=== PATIENT | male | born 1965 | race Two or more races ===

== ENCOUNTER 2020-04-06 06:27 | Inpatient (IN) | payer OTHER ==
[~2020-04-06] VITALS: Ht 175.3 cm; Wt 79.1 kg
[2020-04-06 06:35] VITALS: Ht 175.3 cm; Wt 79.1 kg
--- NOTE | 2020-04-06 06:48 | NUR ---
PT PRESENTED TO ED FOR C/O OF LEFT SIDED ABDOMINAL PAIN THAT RADIATES TO LEFT FLANK WITH ONE EPISODE OF NAUSEA/VOMITING THIS AM. PT REPORTS PAIN X 4 DAYS AGO BUT STATES PAIN WORSENED THIS AM. PT REPORTS LBM X 2 DAYS AGO. PT DENIES FEVER. PT A&0X4, SPEAKING FULL CLEAR SENTENCES. PT BREATHING EVEN AND UNLABORED. ATTEMPTED TO OBTAIN URINE SAMPLE FROM PT AT THIS TIME PT STATES UNABLE TO PROVIDE ONE. PT VERBALIZED UNDERSTANDING THAT SAMPLE IS NEEDED AND STATES HE WILL ATTEMPT ONE SOON. AWAITING MSE. WILL CONTINUE TO MONITOR.
--- NOTE | 2020-04-06 07:17 | NUR ---
REPORT GIVEN TO KULDEEP DINH. KULDEEP DINH TO ASSUME CARE OF PT AT THIS TIME.
--- NOTE | 2020-04-06 07:18 | NUR ---
PT TO CT VIA W/C
[2020-04-06 07:42] LABS: BASOPHIL % 0.4 % (0-2); PLATELET COUNT 296 x10^3mcL (130-400); RED CELL DISTRIBUTION WIDTH 12.8 % (11.5-14.5)
[2020-04-06 07:55] LABS: CALCIUM 8.9 mg/dL (8.5-10.1); CHLORIDE SERUM 104 mmol/L (98-107); CREATININE SERUM 1.2 mg/dL (0.7-1.3); GFR1 > 60 mL/min; GLUCOSE SERUM 106 mg/dL (74-106); POTASSIUM SERUM 3.3 mmol/L (3.5-5.1); SODIUM SERUM 143 mmol/L (136-145)
[2020-04-06 08:05] LABS: ALBUMIN 3.7 g/dL (3.4-5.0); ALKALINE PHOSPHATASE 103 U/L (46-116); ALT/SGPT 57 U/L (16-63); AST/SGOT 29 U/L (15-37); BILIRUBIN TOTAL 0.6 mg/dL (0.20-1.00); TOTAL PROTEIN, SERUM 7.3 g/dL (6.4-8.2)
[2020-04-06 08:29] LABS: UA SPECIFIC GRAVITY 1.015 (1.005-1.035); microscopic required? YES; urine erythrocyte 2+ (NEGATIVE)
--- NOTE | 2020-04-06 08:42 | NUR ---
POC DISCUSSED WITH PT BY ER MD. PT MEDICATED WITH MORPHINE 2MG IVP PER MD ORDERS FOR PAIN, PT LYING IN BED COMFORTABLY IN NO DISTRESS ON FULL CM SINUS ASHER VSS WILL CONTINUE TO MONITOR
[2020-04-06] MEDS ORDERED: AMLODIPINE BESYL5 M2 PO (08:43)
[2020-04-06] MEDS ORDERED: LIPI20 PO (08:44)
--- NOTE | 2020-04-06 09:59 | NUR ---
REPORT GIVEN TO JULIO CÉSAR DINH RESUMING CARE OF PT IN MED SURG FLOOR
--- NOTE | 2020-04-06 10:11 | NUR ---
RECIEVED PATIENT FROM ER. PATIENT ACCOMPANIED TO THE LOBBY VIA WHEELCHAIR BY CORPORATE SECURITY OFFICER. PATIENT PRESENTED TO THE EMERGENCY ROOM AT AROUND 0630 REPORTING LEFT LLQ ABD PAIN. PATIENT DIAGNOSED WITH LEFT URETERAL STOPNE. PATINT IS FRISIAN SPEAKING. NO REPORT OF PAIN AT THIS TIME. IV TO THE LEFT WRIST 20 GUAGE CURRENTLY SALINE LOCKED. UA SENT. WILL CONTINUE TO PROVIDE CARE FOR THIS PATIENT.
[2020-04-06 10:15] LABS: CHOLESTEROL/HDL RATIO 3.5; MAGNESIUM 1.8 mg/dL (1.8-2.4); PHOSPHOROUS 3.3 mg/dL (2.5-4.9)
[2020-04-06 10:17] VITALS: BP 135/87
[2020-04-06 10:47] LABS: AMPHETAMINE QUAL UR NONE DETECTED (See below)
--- NOTE | 2020-04-06 11:10 | NUR ---
PATIENT REPORTS PAIN WHEN AMBULATING. TORADOL GIVEN PER EMAR.
[2020-04-06 11:51] VITALS: BP 138/89
--- NOTE | 2020-04-06 18:20 | NUR ---
PATIENT CURRENTLY AWAKE ALERT AND ORIENTED. PATIENT IS RECIEVING NS AT 100CC/HOUR TO THE LEFT WRIST. PATIENT TO HAVE POSSIBLE CYTOSCOPY, SHOCKWAVE ON 04-08-20 TO TREAT STONE IN URETER. PATIENT INSTRUCTED TO OBSERVE FOR STONE IN CASE IT IS PASSED WITH REGULAR VOIDING. PATIENT DOES REPORT LEFT LOWER QUADRANT PAIN AND RECIEVED TORADOL AND NORCO FOR PAIN PER EMAR. WILL ENDORSE ALL FURTHER CARE TO THE NOC NURSE.
--- NOTE | 2020-04-06 19:54 | NUR ---
PT. AWAKE, ALERT, SITTING UP IN BED. ORIENTED X4. DENIES HEADACHE OR DIZZINESS. BREATH SOUNDS CLEAR THROUGHOUT LUNG SALEEM, RESP. EVEN, UNLABORED. NO SOB NOTED. PT. ON RA. ABD. SOFT AND ROUND, BOWEL SOUNDS ACTIVE. C/O LLQ ABD. PAIN. NO EDEMA TO BLE. PEDAL PULSES STRONG KYLE. IV SITE INTACT. CALL LIGHT WITHIN REACH. PT. STATED THAT HIS PAIN MEDICATION ONLY WORKED FOR A WHILE. RECEIVED PRN TORADOL AND PRN NORCO EARLIER. PT. DUE FOR PRN NORCO AT 2029. WILL MONITOR.
[2020-04-06 20:30] VITALS: BP 134/83
--- NOTE | 2020-04-06 20:44 | NUR ---
PRN NORCO GIVEN FOR C/O PAIN, 06/03. WILL MONITOR
--- NOTE | 2020-04-07 00:33 | NUR ---
PT. WITH EYES CLSOED, APPEARS TO BE SLEEPING. NO FURTHER C/O ABD. SINCE PRN NORCO. CALL LIGHT REMAINS WITHIN REACH.
[2020-04-07 05:10] VITALS: BP 109/71
--- NOTE | 2020-04-07 06:24 | NUR ---
NO COMPLAINTS THIS AM. PT. STATED THAT HE DID HAVE A LITTLE PAIN EARLIER IN THE NIGHT BUT HAS SINCE GONE AWAY. DENIES NEED FOR PAIN MEDICATION. IVF INFUSING WELL, SITE INTACT. NO BLOOD NOTED IN URINE, NO STONES NOTED FROM FILTER. CALL LIGHT WITHIN REACH. WILL ENDORSE PT CARE TO INCOMING NURSE.
[2020-04-07 07:27] LABS: CALCIUM 8.6 mg/dL (8.5-10.1); CARBON DIOXIDE 24.7 mmol/L (21-32); CHLORIDE SERUM 107 mmol/L (98-107); CREATININE SERUM 1.3 mg/dL (0.7-1.3); GFR1 > 60 mL/min; GLUCOSE SERUM 88 mg/dL (74-106); POTASSIUM SERUM 3.4 mmol/L (3.5-5.1); SODIUM SERUM 141 mmol/L (136-145)
[2020-04-07 07:29] LABS: BASOPHIL % 0.6 % (0-2); PLATELET COUNT 260 x10^3mcL (130-400); RED CELL DISTRIBUTION WIDTH 13.3 % (11.5-14.5)
--- NOTE | 2020-04-07 07:30 | NUR ---
PATIENT IS A&OX4, FOLLOWS COMMANDS AND COOPERATES WELL. MEDSURG PATIENT, DENIES CHEST PAIN AT THIS TIME. PERIPHERAL PULSES PALPABLE W/ NO SIGNS OF EDEMA. LUNG SOUNDS CTA BILATERALLY, ON RA, O2 SAT 98%, DENIES SOB. NORMOACTIVE BSX4, ABD SOFT AND FLAT. NO STONES HAVE PASSED WHEN VOIDING. DENIES ANY PAIN AT THIS TIME. AMBULATORY WITH FULL ROM. SKIN IS INTACT. DENIES ANY DISCOMFORT AT THIS TIME WELL. IV SITE REMAINS CDI. WILL CONTINUE TO MONITOR.
[2020-04-07 08:05] VITALS: BP 119/78
--- NOTE | 2020-04-07 11:12 | NUR ---
FAMILY DROPPED OFF PATIENT BELONGINGS WITH RAZOR. NOTIFIED CHARGE NURSE AND WAS TOLD TO NOTIFY PATIENT THAT RAZORS ARE NOT ALLOWED AT THE HOSPITAL. ALL QUESTIONS AND CONCERNS HAVE BEEN ADDRESSED FOR THE PATIENT. PATIENT UNDERSTANDS. WILL CONTINUE TO MONITOR.
[2020-04-07 12:22] VITALS: BP 125/86
[2020-04-07 16:35] VITALS: BP 124/83
--- NOTE | 2020-04-07 16:55 | NUR ---
PATIENT SIGNED INFORMED CONSENT FOR PROCEDURE THAT WILL TAKE PLACE TOMORROW AT 1300. UROLOGY MD SPOKE TO PATIENT THROUGH THE PHONE. ALL QUESTIONS AND CONCERNS WERE ADDRESSED BY YAMINI PLASCENCIA. NO QUESTIONS WERE ASKED UPNO SIGNING INFORMED CONSENT. WILL CONTINUE TO MONITOR.
--- NOTE | 2020-04-07 18:29 | NUR ---
PATIENT DENIES ANY PAIN OR DISCOMFORT AT THIS TIME. ALL QUESTIONS AND CONCERNS WERE ADDRESSED PERTAINING TO NPO, AND SURGERY TOMORROW. PATIENT IS CURRENTLY RESTING IN BED AT THIS TIME. WILL CONTINUE TO MONITOR.
--- NOTE | 2020-04-07 19:30 | NUR ---
REC'D PT FROM DAY NURSE. PT RESTING IN BED. AAOX4, SPEECH CLEAR, FOLLOWS COMMANDS. MED SURG. NO TELE. DENIES CP, DIZZINESS, OR PALPITATIONS. DENIES RESP DISTRESS OR SOB. BREATHING EVEN/UNLABORED ON RA. NO EDEMA NOTED. ABD SOFT/ROUND. C/O LLQ TENDERNESS AND PAIN, STABBING, RADIATING TO TESTICLES. WILL GIVE TORADOL PER ORDER. VOIDING FREELY. PT EDUCATED REGARDING URINATING IN URINAL TO STRAIN URINE. NPO AFTER MN FOR PROCEDURE TOMORROW. PT VERBALIZED UNDERSTANDING. AMBULATORY. SKIN INTACT. IV TO LW PATENT AND INFUSING, SITE WNL. CALL LIGHT WITHIN REACH, BED AT LOWEST POSITION. WILL CONTINUE TO MONITOR.
[2020-04-07 19:56] VITALS: BP 126/80
--- NOTE | 2020-04-08 00:16 | NUR ---
PT AWAKE AND RESTING IN BED WATCHING TV. BREATHING EVEN/UNLABORED ON RA. NO COMPLAINTS AT THIS TIME. CALL LIGHT WITHIN REACH, BED AT LOWEST POSITION. WILL CONTINUE TO MONITOR.
--- NOTE | 2020-04-08 05:30 | NUR ---
PT AWAKE AND RESTING IN BED. IV TO LW LEAKING. D/C'D AND RFA 20 G INSERTED. PT C/O THE SAME LLQ/SUPRAPUBIC STABBING PAIN RADIATING TO HIS TESTICLES, 05/04. TORADOL GIVEN PER ORDER. PLAN FOR CYSTOSCOPY/URETEROSCOPY WITH STENT PLACEMENT @ 1300. NPO SINCE MN. SURGICAL CONSENT SIGNED, CHECKLIST IN PROGRESS. CALL LIGHT WITHIN REACH, BED AT LOWEST POSITION. WILL ENDORSE TO DAY NURSE.
[2020-04-08 05:33] VITALS: BP 136/89
[2020-04-08 06:52] LABS: CALCIUM 8.8 mg/dL (8.5-10.1); CARBON DIOXIDE 25.8 mmol/L (21-32); CHLORIDE SERUM 106 mmol/L (98-107); CREATININE SERUM 1.3 mg/dL (0.7-1.3); GFR1 > 60 mL/min; GLUCOSE SERUM 88 mg/dL (74-106); MAGNESIUM 1.9 mg/dL (1.8-2.4); PHOSPHOROUS 3.3 mg/dL (2.5-4.9); POTASSIUM SERUM 3.8 mmol/L (3.5-5.1); SODIUM SERUM 141 mmol/L (136-145)
[2020-04-08 06:55] LABS: BASOPHIL % 0.4 % (0-2); PLATELET COUNT 271 x10^3mcL (130-400); RED CELL DISTRIBUTION WIDTH 13.4 % (11.5-14.5)
--- NOTE | 2020-04-08 07:30 | NUR ---
RECEIVED PATIENT IN THE BATHROOM PT WAS BRUSHING TEETH. ALERT ORIENTED, VERBALIZES NEEDS WELL. AMBULATES AD ADIS. IVF INFUSING WELL. HL RT A/C AND LT F/A PATENT. RESP EVEN AND UNLABORED, LUNGS CLEAR ON ROOM AIR. LLE NOTED TO BE SWOLLEN AND ECCHYMOSIS NOTED MAINLY IN LEFT KNEE AREA. TENDER TO TOUCH PER PATIENT. NO ACUTE DISTRESS NOTED. WILL CONTINUE TO MONITOR.
--- NOTE | 2020-04-08 07:30 | NUR ---
RECEIVED PATIENT IN BED, AWAKE ALERT AND ORIENTED. IVF INFUSING WELL TO RT F/A, SITE PATENT. RESP EVEN AND UNLABORED, LUNGS CLEAR ON ROOM AIR. PATIENT IS NPO FOR PROCEDURE TODAY. DENIES ANY PAIN OR DISCOMFORT. DENIES ANY N/V/D. WE CONTINUE TO STRAIN URINE ORDERED. PATIENT AMBULATES AD ADIS TO THE BATHROO, NO ACUTE DISTRESS NOTED.
[2020-04-08 08:19] VITALS: BP 137/95
--- NOTE | 2020-04-08 09:14 | NUR ---
PATIENT UP TO THE BATHROOM. CHLORHEXIDINE WIPES DONE FOR PROCEDURE.
--- NOTE | 2020-04-08 11:14 | NUR ---
PATIENT REMAINS IN BED APPEARS TO BE RESTING WELL. CONTINUES TO BE NPO FOR PROCEDURE. NO C/O PAIN OR DISCOMFORT AT THIS TIME.
[2020-04-08 12:07] VITALS: BP 129/90
--- NOTE | 2020-04-08 15:40 | NUR ---
I HAVE REVIEWED THE DATA COLLECTION BY AUTO CAMP ATTENDANT (NAME): ENTERED ON (DATE/TIME): I CONCUR WITH THE DATA AND ANY EXCEPTIONS OR COMMENTS ARE LISTED BELOW: PATIENT'S PLAN OF CARE WAS DISCUSSED AND REVIEWED WITH AUTO CAMP ATTENDANT: TREVOR PHILLIPS
--- NOTE | 2020-04-08 15:54 | NUR ---
PATIENT RETURNED FROM OR VIA [facility] ACCOMPANIED BY NURSE. PATIENT IS AWAKE, ALERT AND ORIENTED, AND WAS ABLE TO WALK FROM [facility] TO THE [facility] AND THEN TO BED. IVF INFUSING WELL, SITE PATENT. DANGLER STRING NOTED TO BE SECURED TO THE PENIS WITH TEGADERM. PATIENT INSTRUCTED AND REMINDED TO BE VERY CAREFUL NOT TO DISLODGE THE STRING. PATIENT VERBALIZES UNDERSTANDING. PATIENT VOIDED 300ML OF PINK TINGED URINE. DENIES ANY PAIN OR DISCOMFORT AT THIS TIME.
--- NOTE | 2020-04-08 18:00 | NUR ---
PATIENT SITTING UP IN BED EATING DINNER TRAY. PER PATIENT HE IS COMFORTABLE AT THIS TIME. NO ACUTE DISTRESS NOTED.
--- NOTE | 2020-04-08 19:20 | NUR ---
RECEIVED PT FROM DAY SHIFT NURSE. PT WATCHING TV IN BED. PT IN NO ACUTE DISTRESS. AAOX4. MED SURG. PT DENIES CP, N/V, DIZZINESS, OR PALPITATIONS. PT ON RA, RR EVEN AND UNLABORED. NO EDEMA NOTED. PT ABLE TO WALK FROM BED TO THE BATHROOM AND BACK. IVF INFUSING WELL, PATENT AND INTACT. NOTED DANGLER STRING SECURED WITH TEGADERM TO THE PENIS. PT EDUCATED TO BE CAREFUL WITH STRING TO NOT DISLODGE. PT VERBALIZED UNDERSTANDING. BOWEL SOUNDS PRESENT X4. CALL LIGHT WITHIN REACH. BED IN LOWEST POSITON. WILL CONTINUE TO MONITOR.
[2020-04-08 20:39] VITALS: BP 121/79
--- NOTE | 2020-04-08 21:11 | NUR ---
PT C/O LEFT LEG PAIN AND OCCASIONAL NUMB FEELING. LEFT EXTREMITY PULSES (PEDAL, POSTERIOR TIBIAL, POPLITEAL, AND FEMORAL) ALL 3+. RIGHT EXTREMITY PULSES PRESENT 3+. NO EDEMA NOTED. CAP REFILL <3 SECS. PT DENIES PAIN MEDICATION AT THIS TIME. WILL CONTINUE TO MONITOR.
--- NOTE | 2020-04-08 23:46 | NUR ---
PT RESTING IN BED. PT C/O ABDOMINAL PAIN AND LEFT EXTREMITY PAIN. RATED 7/10. MEDICATED PT PER JAN. WILL CONTINUE TO MONITOR AND REEVALUATE.
--- NOTE | 2020-04-09 01:05 | NUR ---
PT SLEEPING IN BED. IN NO ACUTE DISTRESS. RR EVEN AND UNLABORED. CALL LIGHT CLOSE TO PT. BED IN LOWEST POSITION. WILL CONTINUE TO MONITOR.
[2020-04-09 05:39] VITALS: BP 133/85
--- NOTE | 2020-04-09 06:04 | NUR ---
PT SLEEPING AT THIS TIME. PT APPEARS TO BE COMFORTABLE. RR ARE EVEN AND UNLABORED ON RA. NO S/S OF ACUTE DISTRESS NOTED AT THIS TIME. WILL ENDORSE CARE TO ONCOMING SHIFT. CALL LIGHT IS WITHIN PT REACH. BED IN LOWEST POSITION. WILL CONTINUE TO MONITOR.
[2020-04-09 07:32] LABS: BASOPHIL % 0.2 % (0-2); PLATELET COUNT 278 x10^3mcL (130-400); RED CELL DISTRIBUTION WIDTH 13.3 % (11.5-14.5)
--- NOTE | 2020-04-09 07:52 | NUR ---
RECIEVED BEDSIDE REPORT FROM BUSINESS PROJECT MANAGER RN. PT AWAKE AND LAYING IN BED. NO ACUTE DISTRESS. BREATHING IS EVEN AND UNLABORED ON RA. PT IS AOX4. IV ON LEFT FOREARM INTACT AND FLUSHES. PT VERBALIZED CONCERN OF STRING LENGTH FOR STINT IN PENIS. PROVEDED EDCUATION ON STINT. BED LOCKED AND IN LOWEST POSTION. CALL LIGHT WITHIN REACH.WILL CONTINUE TO MONITOR.
[2020-04-09 08:03] LABS: CALCIUM 9.7 mg/dL (8.5-10.1); CARBON DIOXIDE 25.1 mmol/L (21-32); CHLORIDE SERUM 103 mmol/L (98-107); GFR1 > 60 mL/min; GLUCOSE SERUM 121 mg/dL (74-106); POTASSIUM SERUM 3.6 mmol/L (3.5-5.1); SODIUM SERUM 140 mmol/L (136-145)
[2020-04-09 08:33] VITALS: BP 127/79
--- NOTE | 2020-04-09 11:59 | NUR ---
PT AWAKE IN BED WATCHING TV. AOX4. BREATHING EVEN AND UNLABORED. NO ACUTE DISTRESS. NO COMPLAINTS AT THIS TIME. BED LOCKED AND IN LOWEST POSITION. CALL LIGHT WITHIN REACH. WILL CONTINUE TO MONITOR.
[2020-04-09 12:19] VITALS: BP 138/81
--- NOTE | 2020-04-09 14:27 | NUR ---
PT RESTING IN BED. EMPTIED URINAL WITH 550ML OF YELLOW/PINK TINGED URINE. NO COMPLAINT OF PAIN. ALL NEEDS MEET AT THIS TIME. CALL LIGHT WITHIN REACH. BED LOCKED AND IN LOWEST POSITION. WILL CONTINUE TO MONITOR.
[2020-04-09 16:14] VITALS: BP 118/74
--- NOTE | 2020-04-09 16:40 | NUR ---
PT RESTING IN BED WATCHING TV. PT VOIDED 300ML PINK TINGLED DARK YELLOW URINE. STENT STRINT STILL ATTACHED BY TEGADERM TO PENIS. NO COMPLAINT OF PAIN. ALL NEEDS METT AT THIS TIME. BED LOCKED AND IN LOWEST POSITION. CALL LIGHT WITHIN REACH. WILL CONTINUE TO MONITOR.
--- NOTE | 2020-04-09 18:40 | NUR ---
PT IN BED REST. NO ACUTE DISTRESS. BREATHING IS EVEN AND UNLABORED. PT COMPLAINED OF 4/10 PAIN IN ABDOMINAL AREA. IV ON RIGHT FOREARM INTACT AND FLUSHING. STENT STILL IN PLACE. STRING ATTACHED TO PENIS WITH TEGADERM. ALL NEEDS MEET AT THIS TIME. BED LOCKED AND IN LOWEST POSITION. CALL LIGHT WITHIN REACH. WILL ENDORSE TO ONCOMING NURSE.
--- NOTE | 2020-04-09 19:00 | NUR ---
I HAVE REVIEWED THE DATA COLLECTION BY RN (NAME):JUAN JOSE LEONARD. ENTERED ON (DATE/TIME):04/09/20,7A-7P. I CONCUR WITH THE DATA AND ANY EXCEPTIONS OR COMMENTS ARE LISTED BELOW:
[2020-04-09 19:21] VITALS: BP 126/84
--- NOTE | 2020-04-09 19:26 | NUR ---
RECEIVED PT FROM DAY SHIFT NURSE. PT RESTING IN BED AT THIS TIME. PT A/OX4. MED SURG. NO S/S OF ACUTE DISTRESS NOTED AT THIS TIME. PT DENIES ANY PAIN, DISCOMFORT, CP, N/V, OR DIZZINESS AT THIS TIME. RR EVEN AND UNLABORED ON RA. PT HAS STRING FROM STENT PLACEMENT SECURED TO PENIS WITH TEGADERM. DRESSING INTACT. IVF FLUIDS INFUSING, PATENT AND INTACT. CALL LIGHT WITHIN REACH. BED IN LOWEST POSITION. WILL CONTINUE TO MONITOR.
--- NOTE | 2020-04-10 01:31 | NUR ---
PT RESTING AT THIS TIME. NO S/S OF ACUTE DISTRESS NOTED AT THIS TIME. RR EVEN AND UNLABORED. PT DENIES ANY PAIN AT THIS TIME. CALL LIGHT WITHIN PT'S REACH. BED IN LOWEST POSITION. WILL CONTINUE TO MONITOR.
[2020-04-10 04:39] VITALS: BP 127/77
--- NOTE | 2020-04-10 05:38 | NUR ---
PT RESTING IN BED. PT DENIES ANY PAIN/DISCOMFORT AT THIS TIME. RR EVEN AND UNLABORED. ALL NEEDS AND CONCERNS MET THIS SHIFT. WILL ENDORSE CARE TO ONCOMING SHIFT. CALL LIGHT WITHIN REACH. BED IN LOWEST POSITION. WILL CONTINUE TO MONITOR.
--- NOTE | 2020-04-10 07:30 | NUR ---
RECEIVED PATIENT SITTING UP IN BED, AWAKE ALERT AND ORIENTED. IVF INFUSING WELL, SITE PATENT, RT F/A. RESP EVEN AND UNLABORED, LUNGS CLEAR ON ROOM AIR. PATIENT VOIDING WELL, VERY PALE PINK. DANGLE THREAD SECURED WITH TEGADERM TO PENIS. AMBULATES AD ADIS. DENIES ANY PAIN OR DISCOMFORT. D/C PLAN HOME FOR TODAY.
[2020-04-10 07:51] VITALS: BP 142/87
[2020-04-10 10:10] LABS: BASOPHIL % 0.5 % (0-2); PLATELET COUNT 295 x10^3mcL (130-400); RED CELL DISTRIBUTION WIDTH 13.5 % (11.5-14.5)
[2020-04-10 10:26] LABS: CALCIUM 9.3 mg/dL (8.5-10.1); CARBON DIOXIDE 25.5 mmol/L (21-32); CHLORIDE SERUM 104 mmol/L (98-107); CREATININE SERUM 1.2 mg/dL (0.7-1.3); GFR1 > 60 mL/min; GLUCOSE SERUM 100 mg/dL (74-106); MAGNESIUM 1.5 mg/dL (1.8-2.4); POTASSIUM SERUM 3.2 mmol/L (3.5-5.1); SODIUM SERUM 141 mmol/L (136-145)
[2020-04-10] MEDS ORDERED: FLO4 PO (11:22)
[2020-04-10] MEDS ORDERED: APAP/HYDROCODON1 T13 PO (11:22)
--- NOTE | 2020-04-10 11:56 | NUR ---
PATIENT'S PLAN OF CARE WAS DISCUSSED AND REVIEWED WITH FINANCIAL REPORTING DIRECTOR:TREVOR PHILLIPS. I HAVE REVIEWED THE DATA COLLECTION BY FINANCIAL REPORTING DIRECTOR (NAME):TREVOR PHILLIPS. ENTERED ON (DATE/TIME):04/10/20. I CONCUR WITH THE DATA AND ANY EXCEPTIONS OR COMMENTS ARE LISTED BELOW:
[2020-04-10 12:04] VITALS: BP 142/87
--- NOTE | 2020-04-10 12:32 | NUR ---
PATIENT READY FOR D/C HOME. IV DC'D. DISCHARGE INSTRUCTIONS GIVEN. PERSONAL BELONGINGS LIST SIGNED. EDCUATION PROVIDED. CONDITION APPEARS STABLE.
== END 2020-04-10 12:35 | disposition home or self-care (01) | DRG 661 ==
LOC: ED 06:27 → MU 09:35
PROVIDERS: Emergency Medicine; Urology; ADMIT Family Medicine
PROC: 0TC78ZZ Extirpation of Matter from Left Ureter, Via Natural or Artificial Opening Endoscopic (ICD-10-PCS; 2020-04-08)
PROC: BT1F1ZZ Fluoroscopy of Left Kidney, Ureter and Bladder using Low Osmolar Contrast (ICD-10-PCS; 2020-04-08)
PROC: 0T778DZ Dilation of Left Ureter with Intraluminal Device, Via Natural or Artificial Opening Endoscopic (ICD-10-PCS; principal; 2020-04-08 13:00)
DX: N13.2 Hydronephrosis with renal and ureteral calculous obstruction (principal); I10 Essential (primary) hypertension; E78.00 Pure hypercholesterolemia, unspecified; E87.6 Hypokalemia; R73.03 Prediabetes; E78.5 Hyperlipidemia, unspecified; Z79.899 Other long term (current) drug therapy; Z90.49 Acquired absence of other specified parts of digestive tract; Z86.73 Personal history of transient ischemic attack (TIA), and cerebral infarction without residual deficits; Z91.041 Radiographic dye allergy status; Z72.89 Other problems related to lifestyle
CPT/HCPCS: C1758; C1769; C2625; G0378; J0330; J0690; J1885; J2270; J2405; J7030; Q0092; Q9967